=== PATIENT | female | born 2000 | race Caucasian/White ===

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

== ENCOUNTER 2021-07-17 02:34 | Emergency (ER) | payer OTHER ==
[~2021-07-17] VITALS: Ht 162.6 cm; Wt 74.8 kg
[2021-07-17] MEDS ORDERED: PYRIDIUM DS200 MG PO (06:11)
[2021-07-17] MEDS ORDERED: CEPHALEXIN500 MG PO (06:11)
== END 2021-07-17 06:46 ==
LOC: ER 02:34 → EMR PED 02:34
DX: N30.90 Cystitis, unspecified without hematuria (principal); R10.2 Pelvic and perineal pain

== ENCOUNTER 2023-05-05 22:30 | Emergency (ER) | payer OTHER ==
[~2023-05-05] VITALS: Ht 160 cm; Wt 73.5 kg
[~2023-05-05 22:30] MED LIST changes: +CEPHALEXIN500 MG PO; +PYRIDIUM DS200 MG PO
[2023-05-05] MEDS ORDERED: KETOROLAC TROMETHAMINE 30 MG VIAL IM STA (23:17)
[2023-05-05 23:57] LABS: HEMOGLOBIN 13.3 g/dL (12.0-15.00); MEAN CELL VOLUME 85.8 fL (80.00-100.00); MEAN CORPUSCULAR HEMOGLOBIN 28.5 pg (27.00-32.0); MEAN CORPUSCULAR HGB CONC 33.2 g/dl (32.0-36.0); PLATELET COUNT 230 K/uL (150-450); RED BLOOD COUNT 4.67 M/uL (4.00-6.00); RED CELL DISTRIBUTION WIDTH 14.3 % (11.5-14.5)
[2023-05-06 00:18] LABS: ALBUMIN 4.2 gm/dL (3.4-5.0); BILIRUBIN TOTAL 0.39 mg/dL (0.3-1.2); CALCIUM 9.4 mg/dL (8.5-10.1); CREATININE SERUM 0.67 mg/dL (0.55-1.02); GFR 110.06; GLOBULINA 3.8 G/DL (2.4-3.5); POTASSIUM 3.37 mEq/L (3.5-5.1)
[2023-05-06 00:19] LABS: URINE APPEARANCE Cloudy; URINE BILIRRUBIN Negative (NEGATIVE); URINE BLOOD Small; URINE COLOR Dark Yellow; URINE GLUCOSE Negative (NEGATIVE); URINE LEUKOCYTE Moderate; URINE NITRATE Negative; URINE PROTEIN 30 (NEGATIVE)
[2023-05-06 00:23] LABS: URINE BACTERIA 3013.7 uL (0.0-1933); URINE EPITHELIAL CELLS 37.8 uL (0.0-38.8); URINE RBC 28.3 uL (0.0-20.8); URINE WBC 1070.1 uL (0.0-23.2)
[2023-05-06] MEDS ORDERED: KETO10TA2 PO (01:35)
[2023-05-06] MEDS ORDERED: ZOVIRAX30 GM TOP (01:35)
[2023-05-06] MEDS ORDERED: VALTREX1000 MG PO (01:35)
[2023-05-06] MEDS ORDERED: PYRIDIUM DS200 MG PO (01:35)
[2023-05-06] MEDS ORDERED: PROTONIX40 MG PO (01:36)
[2023-05-06] MEDS ORDERED: CARAFATE1 GM PO ×2 (01:37→01:38)
[2023-05-06] MEDS ORDERED: CEFTRIAXONE SODIUM 1,000 MG VIAL IM STA (01:41)
== END 2023-05-06 02:27 ==
LOC: ER 22:30
PROVIDERS: General Practice
DX: N90.89 Other specified noninflammatory disorders of vulva and perineum (principal); N39.0 Urinary tract infection, site not specified